=== PATIENT | female | born 1940 | race Caucasian/White ===

== ENCOUNTER 2016-08-31 22:33 | Emergency (ER) | payer OTHER ==
[~2016-08-31] VITALS: Ht 162.6 cm; Wt 97.5 kg
[~2016-08-31 22:33] MED LIST: ASPIRIN81 M1 PO; ATORVASTATIN CA10 MG PO; BISOPROLOL FUMA1 TA4 PO; MELOXICAM7.5 MG PO; PROTONIX 40MG T40 MG PO; TRAMADOL50 MG PO; ZYRTEC ALLERGY10 MG PO
--- NOTE | 2016-08-31 23:02 | ED GI/GU/ABDOMINAL COMPLAINT ---
History of Present Illness General Chief Complaint: Abdominal Pain/Flank Pain Stated Complaint: RIGHT SIDED ABD PAIN, X 1 WEEK Source: patient Exam Limitations: no limitations Vital Signs & Intake/Output Vital Signs & Intake/Output Vital Signs Date Time Temp Pulse Resp B/P B/P Pulse O2 O2 Flow FiO2 Mean Ox Delivery Rate 08/31 2250 97.8 71 18 156/99 95 Room Air ED Intake and Output 09/01 0000 08/31 1200 Intake Total Output Total Balance Patient 215 lb Weight Weight Estimated Measurement Method Allergies Coded Allergies: Penicillins (Severe, RASH 06/26/15) alendronate sodium (From FOSAMAX) (Severe, HIVES 06/26/15) clopidogrel (From PLAVIX) (Severe, HIVES 06/26/15) Reconcile Medications Aspirin 81 MG CTB 1 TAB PO DAILY HEART HEALTH (Reported) Atorvastatin Calcium (Lipitor) 10 MG TAB 1 TAB PO DAILY CHOLESTEROL (Reported ) BISOPROLOL FUMARATE/HCTZ (Bisoprolol-Hctz 5-6.25 MG Tab) 1 TAB TAB 1 TAB PO DAILY UNKNOWN (Reported) CETIRIZINE HCL (Zyrtec) 10 MG SGL 1 CAP PO DAILY ALLERGIES (Reported) Levofloxacin (Levaquin) 500 MG TABLET 1 TAB PO DAILY UTI/BRONCHITIS Meloxicam 7.5 MG TAB 1 TAB PO DAILY PAIN (Reported) Pantoprazole Sodium (Protonix) 40 MG TAB 40 MG PO DAILY ACID REFLUX (Reported ) TRAMADOL HCL (Tramadol) 50 MG TAB 1 TAB PO BID PAIN (Reported) Triage Note: RECEIVED 76 YO FEMALE C/O SHARP RLQ ABDOMINAL PAIN, STARTED MONDAY. PAIN WORSENS WITH COUGHING. PT REPORTS PAIN GETTING WORSE, NOTHING RELIEVES PAIN. + BNAUSEA. NO VOMITING/DIARRHEA. Triage Nurses Notes Reviewed? yes ? n Is pt currently ? No Onset: Gradual Duration: week(s):, waxing and waning Timing: recent history Quality/Severity: cramping Location: right flank Radiation: no radiation Activities at Onset: none Modifying Factors: Worsens With: coughing, urinating. Associated Symptoms: dysuria, cough HPI: 76 yo woman presents with right flank pain x 1 week, associated with dysuria and increased frequency. She notes also a cough x 1 week, no fever, chills, chest pain. She is otherwise well. No trauma Past History Travel History Traveled to [place] past 21 day No Medical History Any Pertinent Medical History? see below for history Neurological: NONE EENT: NONE Cardiovascular: hypertension, CARDIAC STENTS Respiratory: NONE Gastrointestinal: GERD Hepatic: NONE Renal: NONE Musculoskeletal: NONE Psychiatric: NONE Endocrine: NONE Blood Disorders: NONE Cancer(s): NONE INTEGRATED MARKETING SPECIALIST/Reproductive: NONE History of MRSA: No History of VRE: No History of CDIFF: No Surgical History Surgical History: cardiac stenting Psychosocial History Services at Home None What is your primary language Stateless Tobacco Use: Quit >30 days ago Family History Family History, If Any: SISTER (Two sisters had massive heart attacks at 75 and 76 years old). BROTHER (One brother had massive heart attack). Hx Contributory? No Review of Systems Review of Systems Constitutional: Reports: no symptoms. EENTM: Reports: no symptoms. Respiratory: Reports: no symptoms. Cardiovascular: Reports: no symptoms. GI: Reports: no symptoms. Genitourinary: Reports: no symptoms. Musculoskeletal: Reports: no symptoms. Skin: Reports: no symptoms. Neurological/Psychological: Reports: no symptoms. Hematologic/Endocrine: Reports: no symptoms. Immunologic/Allergic: Reports: no symptoms. All Other Systems: Reviewed and Negative Physical Exam Physical Exam General Appearance: well developed/nourished, mild distress Head: atraumatic, normal appearance Eyes: Bilateral: normal appearance. Ears, Nose, Throat, Mouth: hearing grossly normal Neck: normal inspection, supple, full range of motion, normal alignment Respiratory: normal breath sounds, chest non-tender, no respiratory distress, quiet respiration, lungs clear Cardiovascular: regular rate/rhythm Gastrointestinal: normal bowel sounds, soft, mild right sided tenderness to palpation Back: normal inspection Extremities: normal range of motion Neurologic/Psych: no motor/sensory deficits, awake, alert, oriented x 3 Skin: intact, normal color, warm/dry Core Measures ACS in differential dx? No Severe Sepsis Present: No Septic Shock Present: No Progress Differential Diagnosis: appendicitis, biliary colic, cholecystitis, diverticulitis, UTI/pyelo Plan of Care: Orders Procedure Date/time Status URINALYSIS 08/31 2301 Complete LIPASE 08/31 2257 Complete TROPONIN LEVEL 08/31 2256 Complete COMPREHENSIVE METABOLIC PANEL 08/31 2256 Complete CBC WITHOUT DIFFERENTIAL 08/31 2256 Complete EKG 08/31 2234 Active Current Medications Sig/Eileen Start time Last Medication Dose Stop Time Status Admin Ciprofloxacin 500 MG ONCE ONE 09/01 114 CAN (Cipro) 09/01 0116 Laboratory Tests 08/31/16 2310: Urinalysis LIGHT H, Urine Color YEL, Urine Clarity CLDY H, Urine pH 7.0, Ur Specific [place] 1.020, Urine Protein 100 H, Urine Ketones NEG, Urine Nitrite POS H, Urine Bilirubin NEG, Urine Urobilinogen 0.2, Ur Leukocyte Esterase LARGE H, Ur Microscopic SEDIMENT EXAMINED, Urine RBC 3-5, Urine WBC > 75 H, Ur Epithelial Cells FEW, Urine Bacteria PACKD H, Urine Mucus FEW, Urine Hemoglobin MOD H, Urine Glucose NEG 08/31/16 2258: Lipase Cancelled 08/31/162257: Anion Gap 10, Estimated GFR 54 L, BUN/Creatinine Ratio 25.0, Glucose 116 H, Calcium 9.1, Total Bilirubin 0.5, AST 21, ALT 36, Alkaline Phosphatase 92, Troponin I < 0.01, Total Protein 6.8, Albumin 4.0, Globulin 2.8, Albumin/ Globulin Ratio 1.4, Lipase 56, CBC w Diff NO MAN DIFF REQ, RBC 4.06 L, MCV 94.2 , MCH 31.6 H, RDW 14.0, MPV 8.4, Gran % 66.9, Lymphocytes % 21.6, Monocytes % 8.4, Eosinophils % 2.7, Basophils % 0.4, Absolute Granulocytes 5.6, Absolute Lymphocytes 1.8, Absolute Monocytes 0.7 H, Absolute Eosinophils 0.2, Absolute Basophils 0, PUBS MCHC 33.5 Diagnostic Imaging: Viewed by Me: CT Scan. Discussed w/RAD: CT Scan. Radiology Impression: abd/pelvic ct... rectus sheath hematoma... otherwise benign. Initial ED EKG: normal axis, normal intervals, normal p-waves, normal QRS complex, normal sinus rhythm Comments: PATIENT: DEEPAK YBARRA PRESENT AGE: 76 PATIENT ACCOUNT NO: [id number] : 39 LOCATION: [facility] ORDERING PHYSICIAN: DARLING DIALLO MD SERVICE DATE: 08/31/16 EXAM TYPE: CAT - CT ABD & PELVIS W/O IV CONTRAS EXAMINATION: CT ABDOMEN AND PELVIS WITHOUT CONTRAST CLINICAL INFORMATION: Right flank pain. COMPARISON: No prior CT. Renal ultrasound 04/21/2015. TECHNIQUE: Multidetector volumetric imaging was performed from the superior aspect of the liver through the pubic symphysis. Sagittal and coronal reformatted images were obtained on the technologist's workstation. DLP: 1084 mGy-cm FINDINGS: LUNG BASES: The lung bases are clear. Coronary artery calcifications are present. LIVER, GALLBLADDER, AND BILIARY TREE: The liver is normal in size, shape, and attenuation. No focal hepatic lesion or biliary ductal dilatation is present. Cholecystectomy. PANCREAS: Fatty atrophy with no focal abnormality. SPLEEN: Unremarkable. ADRENAL GLANDS: Unremarkable. KIDNEYS AND URETERS: The kidneys are normal in size, shape, and attenuation. No hydronephrosis, hydroureter, or calculi seen. No perinephric stranding. Bilateral renal cysts are present. The largest is seen at the midpole of the left kidney, measuring 6.8 cm. This encroaches upon the collecting system. The largest on the right measures 5.2 cm. BLADDER: Unremarkable. GASTROINTESTINAL TRACT: Small hiatal hernia. The stomach is otherwise unremarkable. The small bowel is unremarkable. No dilated loops of bowel or obstruction. There is colonic diverticulosis without diverticulitis. No free air or free fluid. ABDOMINAL WALL: Small fat-containing umbilical hernia. There is a right rectus sheath hematoma. This measures 10 cm transverse by 4 cm AP by approximately 13 cm CC. LYMPH NODES: Normal. VASCULAR: Moderate atherosclerotic calcifications. PELVIC VISCERA: The uterus is not seen. No adnexal mass. OSSEOUS STRUCTURES: No acute or suspicious osseous abnormality. Moderate degenerative changes throughout the spine with multilevel vacuum disc phenomenon. Multilevel facet arthropathy. Avascular necrosis of the right femoral head noted. IMPRESSION: 1. Right rectus sheath hematoma. 2. No hydronephrosis or nephrolithiasis. Prominent bilateral renal cysts. 3. Diverticulosis without diverticulitis. 4. Avascular necrosis of the right femoral head. This critical result was discussed with DARLING DIALLO MD by telephone at 08/31/2016 11:31 PM and it was ascertained that the content and urgency of the report was understood at the time of direct communication. DICTATED BY: ROSCOE SQUIRES,HILARIO DATE/TIME DICTATED:08/31/162326 SMALL OFFSET PRINTER:JASE DATE/TIME TRANSCRIBED:08/31/162326 CONFIDENTIAL, DO NOT COPY WITHOUT APPROPRIATE AUTHORIZATION. <Electronically signed in Other Vendor System> SIGNED BY: ROSCOE SQUIRES,HILARIO 08/31 0606 Departure Departure Disposition: HOME OR SELF CARE Condition: Stable Clinical Impression Primary Impression: UTI (urinary tract infection) Secondary Impressions: Rectus sheath hematoma Referrals: RAS SUAREZ MD (PCP/Family) Departure Forms: Customer Survey General Discharge Information Prescriptions: Current Visit Scripts Levofloxacin (Levaquin) 1 TAB PO DAILY #10 TAB Comments discussed with dr. lyn re: rectus sheath hematoma... no need for surgical intervention... discussed results with patient at length... close follow up advised.
[2016-08-31 23:09] LABS: ABSOLUTE BASOPHIL COUNT 0 /CUMM (0.0-0.2); ABSOLUTE EOSINOPHIL COUNT 0.2 /CUMM (0.0-0.7); ABSOLUTE GRANULOCYTE CT 5.6 /CUMM (1.4-6.5); ABSOLUTE LYMPH COUNT 1.8 /CUMM (1.2-3.4); ABSOLUTE MONOCYTE COUNT 0.7 /CUMM (0.10-0.60); BASOPHIL % 0.4 % (0.0-2.0); EOSINOPHIL % 2.7 % (0-5); GRANULOCYTE % 66.9 % (42.2-75.2); HEMATOCRIT 38.3 % (37-47); MEAN CORPUSCULAR HGB 31.6 PG (27.0-31.0); MEAN CORPUSCULAR HGB CONC 33.5 G/DL (33.0-37.0); MEAN CORPUSCULAR VOLUME 94.2 FL (81.0-99.0); MEAN PLATELET VOLUME 8.4 FL (7.4-10.4); PLATELET COUNT 239 /CUMM (130-400); RED BLOOD CELL CT 4.06 /CUMM (4.20-5.40); WHITE BLOOD CELL COUNT 8.4 /CUMM (4.8-10.8)
--- NOTE | 2016-08-31 23:36 | CT SCAN REPORT ---
EXAMINATION: CT ABDOMEN AND PELVIS WITHOUT CONTRAST CLINICAL INFORMATION: Right flank pain. COMPARISON: No prior CT. Renal ultrasound 04/21/2015. TECHNIQUE: Multidetector volumetric imaging was performed from the superior aspect of the liver through the pubic symphysis. Sagittal and coronal reformatted images were obtained on the technologist's workstation. DLP: 1084 mGy-cm FINDINGS: LUNG BASES: The lung bases are clear. Coronary artery calcifications are present. LIVER, GALLBLADDER, AND BILIARY TREE: The liver is normal in size, shape, and attenuation. No focal hepatic lesion or biliary ductal dilatation is present. Cholecystectomy. PANCREAS: Fatty atrophy with no focal abnormality. SPLEEN: Unremarkable. ADRENAL GLANDS: Unremarkable. KIDNEYS AND URETERS: The kidneys are normal in size, shape, and attenuation. No hydronephrosis, hydroureter, or calculi seen. No perinephric stranding. Bilateral renal cysts are present. The largest is seen at the midpole of the left kidney, measuring 6.8 cm. This encroaches upon the collecting system. The largest on the right measures 5.2 cm. BLADDER: Unremarkable. GASTROINTESTINAL TRACT: Small hiatal hernia. The stomach is otherwise unremarkable. The small bowel is unremarkable. No dilated loops of bowel or obstruction. There is colonic diverticulosis without diverticulitis. No free air or free fluid. ABDOMINAL WALL: Small fat-containing umbilical hernia. There is a right rectus sheath hematoma. This measures 10 cm transverse by 4 cm AP by approximately 13 cm CC. LYMPH NODES: Normal. VASCULAR: Moderate atherosclerotic calcifications. PELVIC VISCERA: The uterus is not seen. No adnexal mass. OSSEOUS STRUCTURES: No acute or suspicious osseous abnormality. Moderate degenerative changes throughout the spine with multilevel vacuum disc phenomenon. Multilevel facet arthropathy. Avascular necrosis of the right femoral head noted. IMPRESSION: 1. Right rectus sheath hematoma. 2. No hydronephrosis or nephrolithiasis. Prominent bilateral renal cysts. 3. Diverticulosis without diverticulitis. 4. Avascular necrosis of the right femoral head. This critical result was discussed with DARLING DIALLO MD by telephone at 08/31/2016 11:31 PM and it was ascertained that the content and urgency of the report was understood at the time of direct communication.
[2016-09-01] MEDS ORDERED: CIPRO500 M1 PO (01:02)
[2016-09-01] MEDS ORDERED: LEVAQUIN500 M1 PO (01:08)
[2016-09-01 01:29] VITALS: BP 175/78
== END 2016-09-01 01:30 ==
LOC: ERH 22:33
PROVIDERS: Pediatrics
DX: S30.1XXA Contusion of abdominal wall, initial encounter (principal); N39.0 Urinary tract infection, site not specified; X58.XXXA Exposure to other specified factors, initial encounter
CPT/HCPCS: 74176; 81001; 93005; 93010; 96372; J1885

== ENCOUNTER → 2017-06-23 | Day surgery (SDC) | payer OTHER ==
[~2017-06-23] VITALS: Ht 160 cm; Wt 98.4 kg
[~2017-06-23] MED LIST changes: +ADVAIR 100-501 EACH INH; -ATORVASTATIN CA10 MG PO; +CIPRO500 M1 PO; +LEVAQUIN500 M1 PO; +LIPITOR20 M2 PO; +LISINOPRIL20 M1 PO; +LOSARTAN POTASS25 M1 PO; +PROTONIX40 M3 PO
--- NOTE | 2017-06-23 13:48 | Operative Report ---
Operative/Inv Procedure Report Surgery Date: 06/23/17 Name of Procedure: urethral sling, cystoscopy Pre-Operative Diagnosis: stress incontinence Post-Operative Diagnosis: same Estimated Blood Loss: less than 50ml Surgeon/Wafer Fabrication Operator: Adelaida Leary MD Anesthesia: local monitored anesthesi Implants: vaginal mesh Complications: none Condition: stable Operative Indication: stress incontinence Operative/Procedure Note Note: Operative dictation on patient Lani Franklin. She has a history of stress urinary incontinence and she wished to proceed with urethral sling. The risks of vaginal mesh was discussed as well as the risks benefits and alternatives of the surgery in general. All questions were answered. This was done in the office setting as well as the holding area. Patient was taken to the operating room placed on the operating table in the supine position. Timeout was performed. IV antibiotics were infused. Patient was placed in the dorsolithotomy position and she was prepped and draped in the standard sterile fashion after shaving the genitalia region. Dias catheter was placed in the bladder was drained. The Dias was clamped and placed on the patient's abdomen. 1% lidocaine was infiltrated beneath the urethra. Vaginal flaps are created taking care not to injure the urethra. The Altis Sling kit was then opened and used to place the sling with the trochars provided. The sling was seen to be in a nice tension-free manner in a horizontal lie beneath the urethra. There was no mesh in the vaginal fornices. The tightening Prolene stitch was cut. 2 vicryl 3-0 vicryl sutures were placed to ensure horizontal lie of the mesh during the healing period. Incision was closed with running locking 3-0 Vicryl suture. Cystoscopy was performed and there was no mesh in the bladder wall or the urethra. Sponge and needle count were correct at the end of the case. Patient tolerated procedure well. She was transferred to the recovery room stable condition. Findings: no mesh in urethra, vag fornices or bladder Discharge Disposition: Same Day Admissions
== END ==
LOC: STS 03:43
DX: N39.3 Stress incontinence (female) (male) (principal); N39.41 Urge incontinence; N32.81 Overactive bladder; I10 Essential (primary) hypertension; E03.9 Hypothyroidism, unspecified; I25.10 Atherosclerotic heart disease of native coronary artery without angina pectoris; Z87.891 Personal history of nicotine dependence
CPT/HCPCS: C1771; J0690; J1100; J2250; J2405; Q9968